=== PATIENT | female | born 1955 | race Caucasian/White ===

== ENCOUNTER 2016-03-07 11:03 | Outpatient (CLI) | payer OTHER, MEDICARE ==
[~2016-03-07 11:03] MED LIST: CALCIUM + D600 MG PO; LAMOTRIGINE100 MG PO; LORAZEPAM0.5 MG PO; LUNESTA1 MG PO; LUNESTA3 MG PO; MULTI COMPLETE PO; NEURONTIN300 MG PO; TRAMADOL HCL50 MG PO; TRAZODONE HCL50 MG PO; VIIBRYD20 MG PO; VITAMIN C500 M1 PO; VITAMIN D-31000 UNIT PO
--- NOTE | 2016-03-07 15:20 | DIAGNOSTIC IMAGING REPORT ---
PROCEDURE: MG B/L IMPLANTS - SCREENING INDICATION: SCREENING TECHNIQUE: CC and MLO digital views of each breast with CC and MLO digital implant-displacement views. COMPARISON: None. FINDINGS: Computer-aided detection applied. Bilateral submammary implants appear intact with dystrophic [place] calcifications. The visualized portions of the surrounding breast parenchyma are mildly to moderately dense, but within normal limits. IMPRESSION: 1. Probable negative mammogram. Comparison with prior outside studies is recommended to confirm stability. These have been sent for. If and when these become available, an addendum can be issued this report. RESULT CODE: 0- Prior images needed. A. A negative report should not delay biopsy if a dominant or clinically suspicious mass is present. 10-15% of cancers are not identified by x-ray. B. A negative report may reinforce clinical impression. C. Adenosis and dense breasts may obscure an underlying neoplasm. D. False positive reports average 6-10%. E.. A yearly screening mammogram is recommended. A reminder letter will be scheduled.
== END 2016-03-07 23:00 ==
LOC: MAM SRH 11:03
DX: Z12.31 Encounter for screening mammogram for malignant neoplasm of breast (principal)